=== PATIENT | female | born 1960 | race Caucasian/White ===

== ENCOUNTER → 2016-06-18 | Outpatient (CLI) | payer BC | LOC: OD 10:19 | PROVIDERS: ATTEND Obstetrics & Gynecology | DX: M54.5 Low back pain (principal); M47.896 Other spondylosis, lumbar region | CPT/HCPCS: 72110 ==

== ENCOUNTER 2017-10-19 11:46 | Inpatient (IN) | payer BC, OTHER ==
[2017-10-19] MEDS ORDERED: NORMAL SALINE 1000 ML 1,000 ML IV ONE (12:15)
--- NOTE | 2017-10-19 12:20 | ER Document Report ---
ED General - General Mode of Arrival: Ambulatory Information source: Patient TRAVEL OUTSIDE OF THE [place] IN LAST 30 DAYS: No <BRYAN WONG - Last Filed: 10/19/17 14:49> <IESHA DOWNING - Last Filed: 10/19/17 19:25> - General Chief Complaint: High Blood Sugar Stated Complaint: SHAKING Time Seen by Provider: 10/19/17 12:00 Notes: Patient is a 56 year old female that presents to the emergency department today with complaints of a cough with associated shortness of breath. Patient states she was seen one week ago for similar symptoms but her symptoms have increased in severity. Patient states that she was given two breathing treatments prior to arrival here at urgent care. Patient states urgent care sent her here due to finding ketones and protein in her urine. Family member at bedside states that "the patient does not take very good care of herself" and is "not very compliant " with her insulin and other medications. Patient has a headache and associated nausea as well. Patient denies a history of WPW, chest pain, shortness of breath , diarrhea, recent steroid usage, recent ijkr-icc-nogpoqk decongestant usage, or history of CHF (BRYAN WONG) - Related Data Allergies/Adverse Reactions: quinapril [From Accupril] Allergy (Verified 10/19/17 11:48) Sulfa (Sulfonamide Antibiotics) Allergy (Verified 10/19/17 11:48) Past Medical History - General Information source: Patient - Social History Smoking Status: Never Smoker Cigarette use (# per day): No Frequency of alcohol use: None Drug Abuse: None Lives with: Family Family History: Reviewed & Not Pertinent Endocrine Medical History: Reports: Hx Diabetes Mellitus Type 2 Surgical Hx: Negative <BRYAN WONG - Last Filed: 10/19/17 14:49> Review of Systems - Review of Systems Constitutional: See HPI, Other - BGL in 300s EENT: See HPI, Throat pain Cardiovascular: denies: Chest pain Respiratory: See HPI, Cough. denies: Short of breath Gastrointestinal: See HPI, Nausea Genitourinary: No symptoms reported Female Genitourinary: No symptoms reported Musculoskeletal: No symptoms reported Skin: No symptoms reported Hematologic/Lymphatic: No symptoms reported Neurological/Psychological: See HPI, Headaches -: Yes All other systems reviewed and negative <BRYAN WONG - Last Filed: 10/19/17 14:49> Physical Exam <JUDITHBRYAN - Last Filed: 10/19/17 14:49> <IESHA DOWNING - Last Filed: 10/19/17 19:25> - Vital signs Vitals: Temp Pulse Resp BP Pulse Ox 97.8 F 137 H 24 H 157/82 H 97 10/19/17 11:54 10/19/17 11:54 10/19/17 11:54 10/19/17 11:54 10/19/17 11:54 - Notes Notes: PHYSICAL EXAM GENERAL: Alert, interacts well. No acute distress. HEAD: Normocephalic, atraumatic. EYES: Pupils equal, round, and reactive to light. Extraocular movements intact. ENT: Oral mucosa moist, tongue midline. NECK: Full range of motion. Supple. Trachea midline. LUNGS: Clear to auscultation bilaterally, no wheezes, rales, or rhonchi. No respiratory distress. Tachypneic. CARDIOVASCULAR: Tachycardic, regular rhythm. No murmurs, gallops, or rubs. 8 second capillary refill. ABDOMEN: Soft, non-tender. Non-distended. Bowel sounds present in all 4 quadrants. No guarding, rigidity, or rebound. EXTREMITIES: Moves all 4 extremities spontaneously. No edema, radial and dorsalis pedis pulses 2/4 bilaterally. No cyanosis. NEUROLOGICAL: Alert and oriented x3. Normal speech. PSYCH: Anxious, tearful, tremulous. SKIN: Warm, dry, normal turgor. No rashes or lesions noted. (BRYAN WONG) Course - Laboratory Result Diagrams: 10/19/17 12:04 10/19/17 12:04 <BRYAN WONG - Last Filed: 10/19/17 14:49> - Laboratory Result Diagrams: 10/19/17 12:04 10/19/17 12:04 <IESHA DOWNING - Last Filed: 10/19/17 19:25> - Re-evaluation Re-evalutation: 10/19/17 15:36 CBC does not show any leukocytosis or left shift, coags normal, venous blood gas is actually alkalotic with a pH of 7.56, CMP shows slightly low sodium at 3.3 consistent with vomiting, elevated glucose at 378, lactic acid elevated at 4.8, LFTs normal except for slightly elevated alkaline phosphatase at 148, normal total and direct bilirubin, there is no anion gap, CO2 is not low, this is not consistent with diabetic ketoacidosis. The urine does have 20 of ketones and 500 glucose. No evidence of infection. Chest x-ray shows no acute process. Patient was just now rechecked, she continues to be tachycardic but it is much more rate controlled, patient's heart rate is currently 103, blood pressure is 137/89, pulse ox 96%, capillary refill is less than 4 seconds, she is no longer pale, she is no longer anxious, she is no longer tearful or tremulous. She looks much better and states that she feels much better. tachypnea, no respiratory distress. Respiratory rate is 16. Discussed with patient that I am concerned by her elevated lactic acid but otherwise I see no source of infection. Urinalysis is negative for infection. This could be the results of her vomiting, abdomen is nontender to palpation. Patient will be hydrated, lactic acid will be repeated and insulin will be given. So long as the patient is able to tolerate oral liquids, her tachycardia resolves and her lactic acid results patient will be discharged otherwise patient will be referred to hospitalist for admission. Given that she had initially met sepsis criteria Zosyn was initiated for sepsis. 10/19/17 17:45 Repeat lactic acid is improved at 2.4 but not completely resolved, she is still tachycardic to 103, blood pressure is 154/77, pulse ox is 95. Patient is improved but not completely resolved, she is able to drink fluids without any difficulty at this time. I did discuss this uncontrolled diabetic with lactic acidosis with the hospitalist who agrees to place patient on her service in the [facility] you. I do suspect a viral etiology for this however I am concerned by her lactic acidosis. (IESHA DOWNING) - Vital Signs Vital signs: Temp Pulse Resp BP Pulse Ox 97.8 F 137 H 21 H 141/76 H 95 10/19/17 11:54 10/19/17 11:54 10/19/17 19:01 10/19/17 19:01 10/19/17 19:01 - Laboratory Laboratory results interpreted by me: 10/19/17 10/19/17 10/19/17 12:04 12:04 12:04 RBC 5.44 H Hgb 16.0 H VBG pH 7.56 H VBG pCO2 24.5 L Potassium 3.3 L Chloride 97 L Glucose 378 H POC Glucose Lactic Acid Alkaline Phosphatase 145 H Urine Glucose (UA) Urine Ketones 10/19/17 10/19/17 10/19/17 12:04 12:08 13:15 RBC Hgb VBG pH VBG pCO2 Potassium Chloride Glucose POC Glucose 350 H Lactic Acid 4.8 H Alkaline Phosphatase Urine Glucose (UA) >=500 H Urine Ketones 20 H 10/19/17 10/19/17 15:27 16:24 RBC Hgb VBG pH VBG pCO2 Potassium Chloride Glucose POC Glucose 248 H Lactic Acid 2.4 H Alkaline Phosphatase Urine Glucose (UA) Urine Ketones - EKG Interpretation by Me Additional EKG results interpreted by me: 10/19/17 15:38 EKG shows sinus tachycardia at a rate of 111, right axis deviation, no ST segment elevations or depressions, poor R-wave progression, isolated T-wave inversions in lead III per my interpretation. (IESHA DOWNING) Critical Care Note - Critical Care Note Total time excluding time spent on procedures (mins): 45 <IESHA DOWNING - Last Filed: 10/19/17 19:25> Discharge <BRYAN WONG - Last Filed: 10/19/17 14:49> - Discharge Admitting Provider: Hospitalist - [facility] Unit Admitted: [facility] <IESHA DOWNING - Last Filed: 10/19/17 19:25> - Discharge Clinical Impression: Lactic acidosis, Dehydration Vomiting Qualifiers: Vomiting type: unspecified Vomiting Intractability: non-intractable Nausea presence: with nausea Qualified Code(s): R11.2 - Nausea with vomiting, unspecified Type 2 diabetes mellitus Qualifiers: Diabetes mellitus snf insulin use: with computer terminal operator use Diabetes mellitus complication status: with hyperglycemia Qualified Code(s): E11.65 - Type 2 diabetes mellitus with hyperglycemia Condition: Fair Disposition: ADMITTED INPATIENT Scribe Attestation: 10/19/17 19:25 I personally performed the services described in the documentation, reviewed and edited the documentation which was dictated to the scribe in my presence, and it accurately records my words and actions. (IESHA DOWNING) Scribe Documentation - Scribe Written by Scribe:: Jo Jimenez, 10/19/2017 1522 acting as scribe for :: Donovan <BRYAN WONG - Last Filed: 10/19/17 14:49>
[2017-10-19 12:39] LABS: ABSOLUTE BASOPHILS # (AUTO) 0.1 10^3/uL (0.0-0.2); ABSOLUTE EOSINOPHILS # (AUTO) 0.2 10^3/uL (0.0-0.6); ABSOLUTE LYMPHOCYTES (AUTO) 2.4 10^3/uL (0.5-4.7); ABSOLUTE MONOCYTES (AUTO) 0.9 10^3/uL (0.1-1.4); ABSOLUTE NEUT (AUTO) 5.8 10^3/uL (1.7-8.2); EOSINOPHILS % (AUTO) 1.8 % (0-6); HEMATOCRIT 46.3 % (36.0-47.0); LYMPHOCYTES % (AUTO) 25.8 % (13-45); MEAN CORPUSCULAR HEMOGLOBIN 29.5 pg (27.0-33.4); MEAN CORPUSCULAR HGB CONC 34.6 g/dL (32.0-36.0); MEAN CORPUSCULAR VOLUME 85 fl (80-97); MONOCYTES % (AUTO) 9.8 % (3-13); PLATELET COUNT 244 10^3/uL (150-450); RED BLOOD COUNT 5.44 10^6/uL (3.72-5.28); RED CELL DISTRIBUTION WIDTH 13.1 % (11.5-14.0); SEGMENTED NEUTROPHILS % (AUTO) 61.6 % (42-78); TOTAL CELLS COUNTED % (AUTO) 100 %; WHITE BLOOD COUNT 9.4 10^3/uL (4.0-10.5)
[2017-10-19 12:40] LABS: VENOUS BLOOD BASE EXCESS 1.1 mmol/L; VENOUS BLOOD HCO3 21.3 mmol/L (20-32); VENOUS BLOOD PCO2 24.5 mmHg (35-63); VENOUS BLOOD PH 7.56 (7.30-7.42)
[2017-10-19 12:48] LABS: PROTHROMBIN TIME 12.6 SEC (11.4-15.4)
[2017-10-19 13:02] LABS: ALANINE AMINOTRANSFERASE 35 U/L (9-52); ALBUMIN 4.4 g/dL (3.5-5.0); ALKALINE PHOSPHATASE 145 U/L (38-126); ANION GAP 19 (5-19); ASPARTATE AMINO TRANSFERASE 30 U/L (14-36); BILIRUBIN,DIRECT 0.4 mg/dL (0.0-0.4); BLOOD UREA NITROGEN 14 mg/dL (7-20); CALCIUM 9.9 mg/dL (8.4-10.2); CARBON DIOXIDE 22 mmol/L (22-30); CHLORIDE 97 mmol/L (98-107); GLUCOSE 378 mg/dL (75-110); POTASSIUM 3.3 mmol/L (3.6-5.0); SODIUM 137.5 mmol/L (137-145); TOTAL PROTEIN 7.6 g/dL (6.3-8.2)
[2017-10-19] MEDS ORDERED: PIPERACILLIN/TAZOBACTAM 4.5 GM VIAL IV ONE (13:13)
--- NOTE | 2017-10-19 13:21 | RADIOLOGY REPORT (SQ) ---
EXAM DESCRIPTION: CHEST 2 VIEWS COMPLETED DATE/TIME: 10/19/2017 1:08 pm REASON FOR STUDY: cough, tachycardia, tachypnea COMPARISON: 08/08/2010 EXAM PARAMETERS: NUMBER OF VIEWS: two views TECHNIQUE: Digital Frontal and Lateral radiographic views of the chest acquired. RADIATION DOSE: NA LIMITATIONS: none FINDINGS: LUNGS AND PLEURA: No opacities, masses or pneumothorax. No pleural effusion. MEDIASTINUM AND HILAR STRUCTURES: No masses or contour abnormalities. HEART AND VASCULAR STRUCTURES: Heart normal size. No evidence for failure. BONES: No acute findings. HARDWARE: None in the chest. OTHER: No other significant finding. IMPRESSION: NO ACUTE RADIOGRAPHIC FINDING IN THE CHEST. TECHNICAL DOCUMENTATION: JOB ID: [id number] [employer]- All Rights Reserved Reading location - IP/workstation name: [email or web address]
[2017-10-19 14:08] LABS: APPEARANCE,URINE SLIGHTLY-CLOUDY; BILIRUBIN,URINE NEGATIVE (NEGATIVE); COLOR,URINE YELLOW; GLUCOSE, URINE >=500 mg/dL (NEGATIVE); KETONES,URINE 20 mg/dL (NEGATIVE); LEUKOCYTE ESTERASE,URINE NEGATIVE (NEGATIVE); NITRITE,URINE NEGATIVE (NEGATIVE); PROTEIN,URINE NEGATIVE (NEGATIVE); URINE SPECIFIC GRAVITY 1.027; UROBILINOGEN,URINE NEGATIVE mg/dL (<2.0)
[2017-10-19] MEDS ORDERED: RINGERS SOLUTION,LACTATED 1,000 ML IV ONE (14:15)
[2017-10-19] MEDS ORDERED: INSULIN REG, HUMAN 100 UNIT/ML 3 ML VIAL (PYX) SUBCUT ONE (15:40)
--- NOTE | 2017-10-19 17:29 | EKG REPORT ---
SEVERITY:- ABNORMAL ECG - SINUS TACHYCARDIA PROBABLE LEFT ATRIAL ABNORMALITY LEFT POSTERIOR FASCICULAR BLOCK BORDERLINE R WAVE PROGRESSION, ANTERIOR LEADS : Confirmed by: Dixie Nance 19-Oct-2017 17:28:08
[2017-10-19] MEDS ORDERED: ONDANSETRON HCL INJ/PF 4 MG/2 ML SDV IV PRN (18:18)
[2017-10-19] MEDS ORDERED: POTASSIUM CHLORIDE 10 MEQ TABLET.SA PO ONE (18:18)
[2017-10-19] MEDS ORDERED: NORMAL SALINE 1000 ML 1,000 ML IV PRN (18:18)
[2017-10-19] MEDS ORDERED: DEXTROSE 40% GEL 15 GM TUBE PO PRN ×2 (18:23)
[2017-10-19] MEDS ORDERED: GLUCAGON,HUMAN RECOMB 1 MG INJ IM PRN (18:23)
[2017-10-19] MEDS ORDERED: DEXTROSE 50%-WATER 25 GM/50 ML DISP.SYRIN IV PRN ×2 (18:23)
--- NOTE | 2017-10-19 18:29 | PDOC H&P ---
History of Present Illness Admission Date/PCP: 10/19/17 17:46 ZOHREH MAHMOOD PA-C Patient complains of: Nausea shakiness had a cold last week History of Present Illness: MOSES NASH is a 56 year old female with a known history of diabetes mellitus type 2 on insulin who has been ill over the past week Patient has had a cold with nasal congestion dry cough She went to urgent care center and was told she had a viral illness she was sent home Today she was worse she felt extremely shaky lightheaded she went back to urgent care for evaluation She was found tachycardic and febrile and sent to the ED Upon evaluation in the ED she was diagnosed of sepsis unknown source; she was tachycardic tachypneic white blood count was elevated And lactic acid was over 4 She has no infiltrate on the chest x-ray in the urine test was unremarkable Her blood sugars were over 300 Patient was treated with IV hydration insulin blood cultures were drawn And 1 dose of Zosyn was administered She was subsequently admitted on the hospitalist service Past Medical History Cardiac Medical History: Reports: Hypertension Endocrine Medical History: Reports: Diabetes Mellitus Type 2 Past Surgical History Past Surgical History: Reports: Orthopedic Surgery - back Social History Lives with: Family Smoking Status: Never Smoker - Advance Directive Resuscitation Status: Full Code Surrogate healthcare decision maker:: Her mother Yohana Family History Family History: Hypertension Parental Family History Reviewed: Yes Children Family History Reviewed: Yes Sibling(s) Family History Reviewed.: Yes Medication/Allergy Allergies/Adverse Reactions: quinapril [From Accupril] Allergy (Verified 10/19/17 11:48) Sulfa (Sulfonamide Antibiotics) Allergy (Verified 10/19/17 11:48) Review of Systems Constitutional: PRESENT: chills, fatigue, fever(s), weakness Eyes: ABSENT: visual disturbances Ears: ABSENT: hearing changes Cardiovascular: PRESENT: palpitations. ABSENT: chest pain, dyspnea on exertion , edema, orthropnea Respiratory: PRESENT: cough, dyspnea. ABSENT: sputum Gastrointestinal: PRESENT: nausea. ABSENT: abdominal pain Genitourinary: ABSENT: dysuria, hematuria Musculoskeletal: ABSENT: joint swelling Neurological: ABSENT: abnormal gait, abnormal speech, confusion, dizziness, focal weakness, syncope Psychiatric: ABSENT: anxiety, depression Hematologic/Lymphatic: ABSENT: easy bleeding, easy bruising Physical Exam Vital Signs: Temp Pulse Resp BP Pulse Ox 97.8 F 137 H 21 H 137/89 H 96 10/19/17 11:54 10/19/17 11:54 10/19/17 15:01 10/19/17 14:01 10/19/17 15:01 General appearance: PRESENT: no acute distress, obese Head exam: PRESENT: atraumatic, normocephalic Eye exam: PRESENT: conjunctiva pink, EOMI, PERRLA. ABSENT: scleral icterus Ear exam: PRESENT: normal external ear exam Mouth exam: PRESENT: moist, tongue midline Neck exam: ABSENT: carotid bruit, JVD, lymphadenopathy, thyromegaly Respiratory exam: PRESENT: clear to auscultation alirio. ABSENT: rales, rhonchi, wheezes Pulses: PRESENT: normal dorsalis pedis pul GI/Abdominal exam: PRESENT: normal bowel sounds, soft, other - obese. ABSENT: distended, guarding, mass, organolmegaly, rebound, tenderness Musculoskeletal exam: PRESENT: ambulatory, full ROM Neurological exam: PRESENT: alert, awake, oriented to person, oriented to place , oriented to time, oriented to situation, CN II-XII grossly intact. ABSENT: motor sensory deficit Psychiatric exam: PRESENT: normal mood Skin exam: PRESENT: dry, intact, warm. ABSENT: cyanosis, rash Results Impressions: Chest X-Ray 10/19/17 12:16 IMPRESSION: NO ACUTE RADIOGRAPHIC FINDING IN THE CHEST. Assessment & Plan - Diagnosis (1) Sepsis Is this a current diagnosis for this admission?: Yes (2) Dehydration Is this a current diagnosis for this admission?: Yes (3) Lactic acidosis Is this a current diagnosis for this admission?: Yes (4) Type 2 diabetes mellitus Qualifiers: Diabetes mellitus operations coordinator insulin use: with operations coordinator use Diabetes mellitus complication status: with hyperglycemia Qualified Code(s): E11.65 - Type 2 diabetes mellitus with hyperglycemia; Z79.4 - [facility] (current) use of insulin; Z79.4 - manager cardiac cath (current) use of insulin; Z79.4 - manager cardiac cath (current ) use of insulin; Z79.4 - [facility] (current) use of insulin Is this a current diagnosis for this admission?: Yes - Time Time Spent with patient: will continue IV fluids Resume home medications when list is available We will order a flu screen if available Continue Zosyn as initiated in the ED Source of sepsis is unclear 2 blood cultures were drawn; patient would be discharge if his blood cultures are negative and she is clinically stable in 24 hours We will order so we will also serial troponins and repeat EKG in a.m. Time Spent: 50 to 70 Minutes
[2017-10-19] MEDS: FAMOTIDINE 20 MG TABLET PO SCH (21:19)
[2017-10-19] MEDS: INSULIN LISPRO 100 UNIT/ML 3 ML VIAL SUBCUT PRN (22:41)
[2017-10-19] MEDS ORDERED: PIPERACILLIN/TAZOBACTAM 3.375 GM VIAL IV ONE (23:14)
[2017-10-19] MEDS: PIPERACILLIN SODIUM/TAZOBACTAM 3.375 GM in NORMAL SALINE 100 ML IV SCH (23:55)
[2017-10-20] MEDS ORDERED: ACETAMINOPHEN 325 MG TABLET ONE (00:52)
[2017-10-20] MEDS ORDERED: ACETAMINOPHEN 325 MG TABLET PO PRN (00:53)
[2017-10-20] MEDS: PIPERACILLIN SODIUM/TAZOBACTAM 3.375 GM in NORMAL SALINE 100 ML IV SCH (05:23)
[2017-10-20 07:02] LABS: ABSOLUTE EOSINOPHILS # (AUTO) 0.2 10^3/uL (0.0-0.6); ABSOLUTE LYMPHOCYTES (AUTO) 2.3 10^3/uL (0.5-4.7); ABSOLUTE MONOCYTES (AUTO) 0.7 10^3/uL (0.1-1.4); ABSOLUTE NEUT (AUTO) 3.3 10^3/uL (1.7-8.2); BASOPHILS % (AUTO) 0.8 % (0-2); EOSINOPHILS % (AUTO) 3.3 % (0-6); HEMATOCRIT 40.1 % (36.0-47.0); LYMPHOCYTES % (AUTO) 35.7 % (13-45); MEAN CORPUSCULAR HEMOGLOBIN 29.2 pg (27.0-33.4); MEAN CORPUSCULAR HGB CONC 34.3 g/dL (32.0-36.0); MEAN CORPUSCULAR VOLUME 85 fl (80-97); MONOCYTES % (AUTO) 10.2 % (3-13); PLATELET COUNT 197 10^3/uL (150-450); RED BLOOD COUNT 4.71 10^6/uL (3.72-5.28); RED CELL DISTRIBUTION WIDTH 13.4 % (11.5-14.0); TOTAL CELLS COUNTED % (AUTO) 100 %; WHITE BLOOD COUNT 6.5 10^3/uL (4.0-10.5)
[2017-10-20 07:08] LABS: HEMOGLOBIN 13.7 g/dL (12.0-15.5)
[2017-10-20 07:15] LABS: ALANINE AMINOTRANSFERASE 33 U/L (9-52); ALBUMIN 3.3 g/dL (3.5-5.0); ALKALINE PHOSPHATASE 95 U/L (38-126); ANION GAP 6 (5-19); ASPARTATE AMINO TRANSFERASE 21 U/L (14-36); BILIRUBIN,DIRECT 0.3 mg/dL (0.0-0.4); BILIRUBIN,TOTAL 0.8 mg/dL (0.2-1.3); BLOOD UREA NITROGEN 18 mg/dL (7-20); CALCIUM 9.2 mg/dL (8.4-10.2); CARBON DIOXIDE 30 mmol/L (22-30); CHLORIDE 103 mmol/L (98-107); CHOLESTEROL 198.76 mg/dL (0-200); GLUCOSE 204 mg/dL (75-110); LIPASE 37.8 U/L (23-300); POTASSIUM 3.6 mmol/L (3.6-5.0); SODIUM 139.1 mmol/L (137-145); TOTAL PROTEIN 6.1 g/dL (6.3-8.2); TRIGLYCERIDES 155 mg/dL (<150)
[2017-10-20 07:26] LABS: DIRECT LDL 142 mg/dL (<100)
[2017-10-20] MEDS ORDERED: ESCITALOPRAM OXALATE 10 MG TABLET PO SCH (08:00)
[2017-10-20] MEDS ORDERED: LEVOTHYROXINE SODIUM 0.025 MG TABLET PO SCH (08:00)
[2017-10-20] MEDS ORDERED: CHLORTHALIDONE 25 MG TABLET PO SCH (08:00)
--- NOTE | 2017-10-20 08:21 | EKG REPORT ---
SEVERITY:- BORDERLINE ECG - SINUS RHYTHM CONSIDER RIGHT VENTRICULAR HYPERTROPHY : Confirmed by: Dixie Nance 20-Oct-2017 08:21:17
[2017-10-20] MEDS: INSULIN LISPRO 100 UNIT/ML 3 ML VIAL SUBCUT PRN (08:36)
[2017-10-20 08:39] LABS: FREE T4 (FREE THYROXINE) 1.57 ng/dL (0.78-2.19)
[2017-10-20 08:53] LABS: THYROID STIMULATING HORMONE 4.49 uIU/mL (0.47-4.68)
[2017-10-20] MEDS: FAMOTIDINE 20 MG TABLET PO SCH (09:21)
[2017-10-20] MEDS ORDERED: LISINOPRIL 10 MG TABLET PO SCH (10:00)
[2017-10-20] MEDS ORDERED: ENOXAPARIN SODIUM INJ 40 MG/0.4 ML DISP.SYRIN SUBCUT SCH (10:00)
[2017-10-20 10:34] VITALS: BP 145/79
--- NOTE | 2017-10-20 16:21 | PDOC DISCHARGE SUMMARY ---
General - Admit/Disc Date/PCP Admission Date/Primary Care Provider: 10/19/17 17:46 ZOHREH MAHMOOD PA-C Discharge Date: 10/20/17 - Discharge Diagnosis (1) Sepsis Is this a current diagnosis for this admission?: Yes Summary: Patient was admitted with suspicion of sepsis She gave a history of an upper respiratory illness for the past week On the day of admission she presented to an urgent care center tachycardic febrile somewhat hypotensive Upon evaluation in the ED she had an elevated lactic acid and blood sugars were also elevated Patient responded to IV hydration 10/19/17 10/19/17 12:04 12:04 Sodium 137.5 Potassium 3.3 L Chloride 97 L Carbon Dioxide 22 Anion Gap 19 Glucose 378 H Lactic Acid 4.8 H 10/19/17 15:08 Blood Culture - Preliminary Blood NO GROWTH IN 24 HOURS 10/19/17 13:15 Urine Culture - Final Clean Catch Midstream Mixed Urogenital Sade 10/19/17 12:04 Blood Culture - Preliminary Blood NO GROWTH IN 24 HOURS Patient did not have any metabolic acidosis with high anion gap Lactic acidosis was likely secondary to dehydration Patient had negative cultures Chest x-ray was negative During the hospitalization she was treated initially with Zosyn and vancomycin Patient was discharged on Levaquin p.o. as it was still suspected that she had an acute sinusitis and bronchitis She was hemodynamically stable 24 hours after admission (2) Dehydration Is this a current diagnosis for this admission?: Yes Summary: Resolved (3) Lactic acidosis Is this a current diagnosis for this admission?: Yes (4) Type 2 diabetes mellitus Is this a current diagnosis for this admission?: Yes Summary: Patient's blood sugars were somewhat elevated in the 200 -300 range She was treated with insulin sliding scale patient is to follow-up with his primary care physician to optimize glucose control Lantus insulin was increased 5 units daily - Additional Information Resuscitation Status: Full Code Discharge Diet: Diabetic Discharge Activity: Activity As Tolerated Prescriptions: Levofloxacin [Levaquin 750 mg Tablet] 750 mg PO DAILY #7 tablet Home Medications: Escitalopram Oxalate 10 mg PO QAM 10/19/17 Insulin Aspart [Novolog Insulin 100 Unit/1 ml 10 ml] 0 unit SUBCUT .SLD SCALE PRN 10/19/17 Levothyroxine Sodium [Synthroid 0.025 mg Tablet] 1 tab PO QAM 10/19/17 Lisinopril 1 tab PO DAILY 10/19/17 Omeprazole 40 mg PO QPM 10/19/17 Insulin Glargine,Hum.rec.anlog [Viviana Obrien] 63 unit SQ QPM #0 10/20/17 Levofloxacin [Levaquin 750 mg Tablet] 750 mg PO DAILY #7 tablet 10/20/17 History of Present Illness Patient complains of: shaky, tachycardia History of Present Illness: MOSES NASH is a 56 year old female with a known history of diabetes mellitus type 2 on insulin who has been ill over the past week Patient has had a cold with nasal congestion dry cough She went to urgent care center and was told she had a viral illness she was sent home Today she was worse she felt extremely shaky lightheaded she went back to urgent care for evaluation She was found tachycardic and febrile and sent to the ED Upon evaluation in the ED she was diagnosed of sepsis unknown source; she was tachycardic tachypneic white blood count was elevated And lactic acid was over 4 She has no infiltrate on the chest x-ray in the urine test was unremarkable Her blood sugars were over 300 Patient was treated with IV hydration insulin blood cultures were drawn And 1 dose of Zosyn was administered She was subsequently admitted on the hospitalist service Physical Exam Vital Signs: Temp Pulse Resp BP Pulse Ox 97.9 F 78 16 145/79 H 97 10/20/17 10:32 10/20/17 10:32 10/20/17 10:32 10/20/17 10:32 10/20/17 10:32 Intake & Output 10/19/17 10/20/17 10/21/17 00:59 00:59 00:59 Intake Total 1548 Balance 1548 Weight 135.6 kg General appearance: PRESENT: no acute distress, obese Head exam: PRESENT: atraumatic, normocephalic Eye exam: PRESENT: conjunctiva pink, EOMI, PERRLA. ABSENT: scleral icterus Ear exam: PRESENT: normal external ear exam Mouth exam: PRESENT: moist, tongue midline Neck exam: ABSENT: carotid bruit, JVD, lymphadenopathy, thyromegaly Respiratory exam: PRESENT: clear to auscultation alirio. ABSENT: rales, rhonchi, wheezes Pulses: PRESENT: normal dorsalis pedis pul GI/Abdominal exam: PRESENT: normal bowel sounds, soft, other - obese. ABSENT: distended, guarding, mass, organolmegaly, rebound, tenderness Musculoskeletal exam: PRESENT: ambulatory, full ROM Neurological exam: PRESENT: alert, awake, oriented to person, oriented to place , oriented to time, oriented to situation, CN II-XII grossly intact. ABSENT: motor sensory deficit Psychiatric exam: PRESENT: normal mood Skin exam: PRESENT: dry, intact, warm. ABSENT: cyanosis, rash Results Laboratory Results: 10/20/17 06:38 10/20/17 06:38 10/20/17 10/20/17 10/20/17 06:38 06:38 06:38 WBC 6.5 RBC 4.71 Hgb 13.7 D Hct 40.1 MCV 85 MCH 29.2 MCHC 34.3 RDW 13.4 Plt Count 197 Seg Neutrophils % 50.0 Lymphocytes % 35.7 Monocytes % 10.2 Eosinophils % 3.3 Basophils % 0.8 Absolute Neutrophils 3.3 Absolute Lymphocytes 2.3 Absolute Monocytes 0.7 Absolute Eosinophils 0.2 Absolute Basophils 0.0 Sodium 139.1 Potassium 3.6 Chloride 103 Carbon Dioxide 30 Anion Gap 6 BUN 18 Creatinine 0.69 Est GFR ( Amer) > 60 Est GFR (Non-Af Amer) > 60 Glucose 204 H Calcium 9.2 Magnesium 2.0 Total Bilirubin 0.8 AST 21 ALT 33 Alkaline Phosphatase 95 Total Protein 6.1 L Albumin 3.3 L Triglycerides 155 H Cholesterol 198.76 LDL Cholesterol Direct 142 H VLDL Cholesterol 31.0 HDL Cholesterol 39 L Lipase 37.8 TSH 4.49 Free T4 1.57 10/19/17 10/20/17 10/20/17 19:16 00:27 06:38 Troponin I < 0.012 < 0.012 < 0.012 Impressions: Chest X-Ray 10/19/17 12:16 IMPRESSION: NO ACUTE RADIOGRAPHIC FINDING IN THE CHEST. Qualifiers - * PATIENT BEING DISCHARGED WITH ANY OF THE FOLLOWING DIAGNOSIS: No
[2017-10-20] MEDS ORDERED: INSULIN GLARGINE,HUM.REC.ANLOG 300 UNIT/3 ML INSULN.PEN SUBCUT SCH (18:00)
== END 2017-10-20 10:53 | disposition home or self-care (01) | DRG 641 ==
LOC: ER 11:46 → EH 17:46 → 3S 19:30
PROVIDERS: ADMIT Internal Medicine; ATTEND Internal Medicine
DX: E86.0 Dehydration (principal); E87.2 Acidosis; J01.90 Acute sinusitis, unspecified; J20.9 Acute bronchitis, unspecified; E11.65 Type 2 diabetes mellitus with hyperglycemia; Z79.4 Long term (current) use of insulin; Z88.2 Allergy status to sulfonamides; Z88.8 Allergy status to other drugs, medicaments and biological substances; Z82.49 Family history of ischemic heart disease and other diseases of the circulatory system
CPT/HCPCS: 36415; 71046; 80053; 80061; 81001; 82803; 82962; 83036; 83605; 83690; 83735; 84439; 84443; 84484; 85025; 85610; 87040; 87086; 93005; 93010; 96361; 96365; 99285; J1815; J2543; J7030; J7120